=== PATIENT | male | born 1985 | race Caucasian/White ===

== ENCOUNTER → 2020-09-22 | Outpatient (CLI) | payer OTHER ==
--- NOTE | 2020-09-22 13:46 | CONS ---
CONSULTATION DATE OF SERVICE: 09/22/2020. This 35-year-old gentleman has been evaluated in [facility] Center for possible obstructive sleep apnea-hypopnea syndrome. HISTORY OF PRESENT ILLNESS/SLEEP-WAKE EVALUATION: Patient's usual sleep schedule on working days is from 8:30 a.m. to 3 p.m. On weekends from 10 p.m. to 6:45 a.m. 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 No TV in bedroom. He sleeps on the side position. He wakes up from sleep 4-6 times. According to his , he snores loudly and has witnessed episodes of stopped breathing during the sleep. No history of hypnagogic hallucinations, sleep paralysis or cataplexy. [place] Sleepiness Scale significantly increased to 12. The patient may take naps 1-2 times a day. PAST MEDICAL HISTORY: Positive for hypertension, asthma, seasonal allergy, allergic sinusitis, diabetes mellitus, depression. PAST SURGICAL HISTORY: Right knee surgery for meniscus problems. MEDICATIONS: Metformin ER 500 mg twice a day, lisinopril 2.5 mg once a day. SOCIAL HISTORY: Negative for smoking or using alcohol. FAMILY HISTORY: Positive for sleep apnea by his father and his daughter and they are on treatment with CPAP. REVIEW OF SYSTEMS: Multiple awakenings from sleep, sleepiness, loud snoring. No fevers. No double vision. No recent chest pain. No shortness of breath. No abdominal pain. No bleeding episodes. No blood in the urine. No seizure episodes. PHYSICAL EXAMINATION: GENERAL: A pleasant gentleman without distress. VITAL SIGNS: BP 130/83, HR 70, RR 18, height 5 feet 9 inches, weight 226.6, temperature 97.4, oxygen saturation at room air 98%, body mass index 33.3. HEENT: PERRLA, EOMI. Oropharynx extremely low position of soft palate. Mallampati 4. NECK: 16-1/2 inches in circumference. LUNGS: Clear to percussion and to auscultation. Good air exchange. No wheezing or rhonchi. HEART: S1, S2 regular. No murmurs, gallops, or rubs. ABDOMEN: Obese. EXTREMITIES: No clubbing or cyanosis. CHIEF SCIENTIST: Awake, alert, and oriented X3. Cranial nerves 2 to 7 intact. There is no fasciculation or atrophy. noted. No focal deficits observed. IMPRESSION: 1. Loud snoring, witnessed episodes of stopped breathing during sleep, extremely low position of soft palate, sleepiness by [place] Sleepiness Scale, obstructive sleep apnea-hypopnea syndrome. 2. Obesity. 3. 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 4. Hypertension. 5. Asthma. 6. Seasonal allergies. 7. History of sinusitis. 8. Diabetes mellitus. 9. History of depression. 10.Status post right knee surgery for meniscus problems. PLAN: 1. Polysomnography for evaluation of patient's breathing during sleep. 2. CPAP/BiPAP titration if sleep study confirms obstructive sleep apnea-hypopnea syndrome. 3. Preferable position during sleep on the side. 4. No driving if patient feels any sleepiness. 5. I will see patient for follow up visit to explain results of testing and following plan. Thank you very much for referring this patient for consultation. Sincerely, Fidel Field MD, PhD, FAASM Diplomat of [place] [employer]ties [place] Board of [employer] Medicine Pourer Crane Ladle of [facility] [place] MMODL / IJN: [id number] /
== END ==
LOC: SLEEP 11:41
PROVIDERS: ATTEND Internal Medicine
DX: G47.33 Obstructive sleep apnea (adult) (pediatric) (principal); E66.9 Obesity, unspecified; E11.9 Type 2 diabetes mellitus without complications; I10 Essential (primary) hypertension; J45.909 Unspecified asthma, uncomplicated; J30.2 Other seasonal allergic rhinitis; F32.9 Major depressive disorder, single episode, unspecified; Z87.09 Personal history of other diseases of the respiratory system; Z98.890 Other specified postprocedural states

== ENCOUNTER → 2021-12-07 | Outpatient (CLI) | payer OTHER ==
--- NOTE | 2021-12-07 11:31 | P.PN ---
Subjective DATE: 12/07/2021 FOLLOW UP VISIT. Patient with obstructive sleep apnea hypopnea syndrome return to sleep center for follow-up visit. Information from previous visit have been reviewed. Patient is using PAP equipment every night but not always for the whole night, getting PAP supplies in time. The patient does not have significant problems with the mask, PAP unit and humidification. [place] sleepiness scale is for. I checked information from PAP unit. PAP unit pressure 515, average 7.9 cm H2O. Usage is 90%, but only 27 % for more then 4 hours, average 4 hours per night. Leak is 26 l/m, which is in acceptable range. Apnea Hypopnea Index is 0.8, which is normal. MEDICATIONS:1. Metformin 500 mg twice a day 2. Lisinopril 3. Juanita During physical exam: GENERAL: A pleasant patient without any distress. VITAL SIGNS: BP 115/70, HR 62, RR 14 , weight 212.2, temperature and 96.7, oxygen saturation at room air 96 % . HEENT: PERRLA, EOMI.low position of soft palate, Mallapati 4 . NECK: Supple. No JVD. LUNGS: Clear to percussion and to auscultation. Good air exchange. No wheezing or rhonchi. HEART: S1, S2 regular. ABDOMEN: Soft and nontender.[] EXTREMITIES: No clubbing or cyanosis. AUTOMOTIVE METALSMITH: Awake, alert, and oriented x3. No focal deficit. Impressions: 1. Obstructive sleep apnea-hypopnea syndrome. Patient demonstrated borderline compliance with treatment, benefiting from treatment. 2. Hypertension. 3. Asthma. 4. shift engineer worker. 5. Seasonal ALLERGIES. 6. History of sinusitis. 7. Diabetes mellitus. 8. History of depression. 9. Status post right knee surgery for meniscus problems. Plan: 1. Continue using PAP equipment every night for the whole night. 2. To change air filter at least 1-2 times per month. 3. PAP unit should stay lower then position of the head. 4. Advised patient to remove all remaining water from humidifier canister daily and make it dry after each usage. Refill canister with fresh distilled water before each usage. 5. Sleep hygiene with regular time in bed for at least 8 hours. 6. Precautions related to driving. No driving if feel any sleepiness. 7. I will maintain prescription for PAP supplies including mask, tube, filters. 8. Follow up visit in 6 months or earlier if patient has any problems. 9. Watching weight. Thank you very much for allowing me to participate in the management of your patient. Fidel Field MD, PhD, FAASM. Diplomat of [place] Board of Sleep Medicine, Sleep Medicine Board by [place] Board of Internal Medicine School Child Care Attendant of [facility] [place]
== END ==
LOC: SLEEP 10:33
PROVIDERS: ATTEND Internal Medicine
DX: G47.33 Obstructive sleep apnea (adult) (pediatric) (principal); I10 Essential (primary) hypertension; J45.909 Unspecified asthma, uncomplicated; Z87.09 Personal history of other diseases of the respiratory system; E11.9 Type 2 diabetes mellitus without complications; F32.A Depression, unspecified; Z98.890 Other specified postprocedural states; Z79.84 Long term (current) use of oral hypoglycemic drugs; Z79.899 Other long term (current) drug therapy

== ENCOUNTER → 2022-06-07 | Outpatient (CLI) | payer OTHER ==
--- NOTE | 2022-06-07 11:35 | P.PN ---
Subjective DATE: 06/07/2022 FOLLOW UP VISIT. Patient with obstructive sleep apnea hypopnea syndrome return to sleep center for follow-up visit. Information from previous visit have been reviewed. Patient is using PAP equipment every night for the whole night, getting PAP supplies in time. The patient does not have significant problems with the mask, PAP unit and humidification. [place] sleepiness scale is 5, which is normal. I checked information from PAP unit. PAP unit pressure 5-15, average 7.9 cm H2O. Usage is 100% and 83 % for more then 4 hours, average 6.75 hours per night. Leak is 12.6 l/m, which is in acceptable range. Apnea Hypopnea Index is 0.9, which is normal. MEDICATIONS:1. Metformin 500 mg twice a day 2. Lisinopril once a day 3. Victoza During physical exam: GENERAL: A pleasant patient without any distress. VITAL SIGNS: BP 119/74, HR 67, RR 16 , weight 209.6, temperature 97.4, oxygen saturation at room air 98 % . HEENT: PERRLA, EOMI.low position of soft palate, Mallapati 4 . NECK: Supple. No JVD. LUNGS: Clear to percussion and to auscultation. Good air exchange. No wheezing or rhonchi. HEART: S1, S2 regular. ABDOMEN: Soft and nontender.[] EXTREMITIES: No clubbing or cyanosis. SUPERVISOR ROUGH END: Awake, alert, and oriented x3. No focal deficit. Impressions: 1. Obstructive sleep apnea-hypopnea syndrome. Patient demonstrated great compliance with treatment, benefiting from treatment. 2. Hypertension. 3. Diabetes mellitus. 4. History of asthma. 5. Seasonal ALLERGIES. 6. History of sinusitis. 7. History of depression. 8. Status post right knee surgery for meniscus problems. Plan: 1. Continue using PAP equipment every night for the whole night. 2. To change air filter at least 1-2 times per month. 3. PAP unit should stay lower then position of the head. 4. Advised patient to remove all remaining water from humidifier canister daily and make it dry after each usage. Refill canister with fresh distilled water before each usage. 5. Sleep hygiene with regular time in bed for at least 8 hours. 6. Precautions related to driving. No driving if feel any sleepiness. 7. I will maintain prescription for PAP supplies including mask, tube, filters. 8. Follow up visit in 6 months or earlier if patient has any problems. Thank you very much for allowing me to participate in the management of your patient. Fidel Field MD, PhD, FAASM. Diplomat of [place] Board of Sleep Medicine, Sleep Medicine Board by [place] Board of Internal Medicine Administrative Support Specialist of [facility] [place]
== END ==
LOC: SLEEP 10:48
PROVIDERS: ATTEND Internal Medicine
DX: G47.33 Obstructive sleep apnea (adult) (pediatric) (principal); I10 Essential (primary) hypertension; E11.9 Type 2 diabetes mellitus without complications; Z98.890 Other specified postprocedural states; Z82.5 Family history of asthma and other chronic lower respiratory diseases; Z87.09 Personal history of other diseases of the respiratory system; Z79.84 Long term (current) use of oral hypoglycemic drugs; Z79.899 Other long term (current) drug therapy; Z86.59 Personal history of other mental and behavioral disorders; Z99.89 Dependence on other enabling machines and devices; Z96.651 Presence of right artificial knee joint
CPT/HCPCS: 99212

== ENCOUNTER → 2022-12-28 | Outpatient (CLI) | payer OTHER ==
--- NOTE | 2022-12-28 11:28 | P.PN ---
Subjective DATE: 12/28/2022 FOLLOW UP VISIT. Patient with obstructive sleep apnea hypopnea syndrome return to sleep center for follow-up visit. Information from previous visit have been reviewed. Patient is using PAP equipment every night for the whole night, getting PAP supplies in time. The patient does not have significant problems with the mask, PAP unit and humidification. [place] sleepiness scale is 4, which is normal. I checked information from PAP unit. PAP unit pressure 5-15, average 8.7 cm H2O. Usage is 100% and 87 % for more then 4 hours, average 6.75 hours per night. Leak is 15.2 l/m, which is in acceptable range. Apnea Hypopnea Index is 1.1, which is normal. MEDICATIONS:1. Lisinopril 2.5 mg once a day 2. Metformin 500 mg twice a day During physical exam: GENERAL: A pleasant patient without any distress. VITAL SIGNS: BP 119/71, HR 67, RR 16, weight 214.4, temperature 97.9, oxygen saturation at room air 98 % . HEENT: PERRLA, EOMI.low position of soft palate, Mallapati 4 . NECK: Supple. No JVD. LUNGS: Clear to percussion and to auscultation. Good air exchange. No wheezing or rhonchi. HEART: S1, S2 regular. ABDOMEN: Soft and nontender.[] EXTREMITIES: No clubbing or cyanosis. PINSETTER MECHANIC AUTOMATIC: Awake, alert, and oriented x3. No focal deficit. Impressions: 1. Obstructive sleep apnea-hypopnea syndrome. Patient demonstrated great compliance with treatment, benefiting from treatment. 2. Hypertension. 3. Diabetes mellitus. 4. History of asthma. 5. History of depression. 6. History of sinusitis. 7. Seasonal ALLERGIES. 8. Status post right knee surgery for meniscus problems. Plan: 1. Continue using PAP equipment every night for the whole night. 2. To change air filter at least 1-2 times per month. 3. PAP unit should stay lower then position of the head. 4. Advised patient to remove all remaining water from humidifier canister daily and make it dry after each usage. Refill canister with fresh distilled water before each usage. 5. Sleep hygiene with regular time in bed for at least 8 hours. 6. Precautions related to driving. No driving if feel any sleepiness. 7. I will maintain prescription for PAP supplies including mask, tube, filters. 8. Follow up visit in 6 months or earlier if patient has any problems. 9. Watching weight. Thank you very much for allowing me to participate in the management of your patient. Fidel Field MD, PhD, FAASM. Diplomat of [place] Board [employer] Sleep Medicine, Sleep Medicine Board by [place] [employer] Medicine Electric Organ Assembler of [facility] [place]
== END ==
LOC: 3 N SLEEP 10:48
PROVIDERS: ATTEND Internal Medicine
DX: G47.33 Obstructive sleep apnea (adult) (pediatric) (principal); E11.9 Type 2 diabetes mellitus without complications; I10 Essential (primary) hypertension; J45.909 Unspecified asthma, uncomplicated; F32.A Depression, unspecified; Z96.651 Presence of right artificial knee joint; Z99.89 Dependence on other enabling machines and devices; Z79.84 Long term (current) use of oral hypoglycemic drugs; Z79.899 Other long term (current) drug therapy
CPT/HCPCS: 99212

== ENCOUNTER → 2023-07-05 | Outpatient (CLI) | payer OTHER ==
--- NOTE | 2023-07-05 11:03 | P.PN ---
Subjective DATE: 07/05/2023 FOLLOW UP VISIT. Patient with obstructive sleep apnea hypopnea syndrome return to sleep center for follow-up visit. Information from previous visit have been reviewed. Patient is using PAP equipment every night for the whole night, getting PAP supplies in time. The patient does not have significant problems with the mask, PAP unit and humidification. [place] sleepiness scale is 6. I checked information from PAP unit. PAP unit pressure 5-15, average 8.3 cm H2O. Usage is 100% and 77 % for more then 4 hours, average 6.5 hours per night. Leak is 10.2 l/m, which is in acceptable range. Apnea Hypopnea Index is 2.1, which is normal. MEDICATIONS:1. Metformin 500 mg twice a day 2. Victoza During physical exam: GENERAL: A pleasant patient without any distress. VITAL SIGNS: BP 104/75, HR 87, RR 20 , weight 219.0, temperature 97.4, oxygen saturation at room air 98 % . HEENT: PERRLA, EOMI.low position of soft palate, Mallapati 4 . NECK: Supple. No JVD. LUNGS: Clear to percussion and to auscultation. Good air exchange. No wheezing or rhonchi. HEART: S1, S2 regular. ABDOMEN: Soft and nontender.[] EXTREMITIES: No clubbing or cyanosis. PIPELAYER: Awake, alert, and oriented x3. No focal deficit. Impressions: 1. Obstructive sleep apnea-hypopnea syndrome. Patient demonstrated good compliance with treatment, benefiting from treatment. 2. Diabetes mellitus, according to patient recent A1c is 5.9. 3. History of Hypertension. 4. History of asthma. 5. History of depression. 6. History of sinusitis. 7. Seasonal ALLERGY. 8. Status post right knee surgery for meniscus problems. 9. dealership manager worker. Plan: 1. Continue using PAP equipment every night for the whole night. 2. To change air filter at least 1-2 times per month. 3. PAP unit should stay lower then position of the head. 4. Advised patient to remove all remaining water from humidifier canister daily and make it dry after each usage. Refill canister with fresh distilled water before each usage. 5. Sleep hygiene with regular time in bed for at least 8 hours. 6. Precautions related to driving. No driving if feel any sleepiness. 7. I will maintain prescription for PAP supplies including mask, tube, filters. 8. Watching weight. 9. Follow up visit in 6 months or earlier if patient has any problems. Thank you very much for allowing me to participate in the management of your patient. Fidel Field MD, PhD, FAASM. Diplomat of [place] Board of Sleep Medicine, Sleep Medicine Board by [place] Board of Internal Medicine Spring Fitter Helper of [facility] [place]
== END ==
LOC: 3 N SLEEP 10:37
PROVIDERS: ATTEND Internal Medicine
DX: G47.33 Obstructive sleep apnea (adult) (pediatric) (principal); E11.9 Type 2 diabetes mellitus without complications; I10 Essential (primary) hypertension; J45.909 Unspecified asthma, uncomplicated; F32.A Depression, unspecified; Z87.09 Personal history of other diseases of the respiratory system; Z98.890 Other specified postprocedural states; Z99.89 Dependence on other enabling machines and devices; Z79.84 Long term (current) use of oral hypoglycemic drugs
CPT/HCPCS: 99212

== ENCOUNTER → 2024-02-14 | Outpatient (CLI) | payer BC ==
[2024-02-14 10:28] VITALS: BP 111/70; PULSE 56; RESP 18; TEMP 97.7
--- NOTE | 2024-02-14 11:09 | P.PROGSL ---
Subjective DATE: 02/14/2024 FOLLOW UP VISIT. Patient with obstructive sleep apnea hypopnea syndrome return to sleep center for follow-up visit. Information from previous visit have been reviewed. Patient is using PAP equipment every night for the whole night, getting PAP supplies in time. The patient does not have significant problems with the mask, PAP unit and humidification. [place] sleepiness scale is 3, which is normal. I checked information from PAP unit. PAP unit pressure 5-15, average 8.0 cm H2O. Usage is 93% and 87% for more then 4 hours, average 7.5 hours per night. Leak is 15.2 l/m, which is in acceptable range. Apnea Hypopnea Index is 3.2, which is normal. MEDICATIONS have been reviewed, please see below. During physical exam: GENERAL: A pleasant patient without any distress. VITAL SIGNS: Please see below, weight is 221.8 lbs. HEENT: PERRLA, EOMI.low position of soft palate, Mallapati 4 . NECK: Supple. No JVD. LUNGS: Clear to percussion and to auscultation. Good air exchange. No wheezing or rhonchi. HEART: S1, S2 regular. ABDOMEN: Soft and nontender. Slightly obese EXTREMITIES: No clubbing or cyanosis. FORK TRUCK DRIVER: Awake, alert, and oriented x3. No focal deficit. Impressions: 1. Obstructive sleep apnea-hypopnea syndrome. Patient demonstrated great compliance with treatment, benefiting from treatment. 2. Obesity, BMI 34.6, patient increased weight on 2 pounds comparing with previous visit. 3. Diabetes mellitus, recent hemoglobin A1c according to patient 6.9. 4. History of hypertension. 5. History of asthma. 6. History of depression. 7. History of sinusitis. 8. financial institution manager worker. 9. Seasonal allergy. 10. Status post right knee surgery for meniscus problems. Plan: 1. Continue using PAP equipment every night for the whole night. 2. Sleep hygiene with regular time in bed for at least 7.5-8 hours 3. PAP unit should stay lower then position of the head. 4. Advised patient to remove all remaining water from humidifier canister daily and make it dry after each usage. Refill canister with fresh distilled water before each usage. 5. Watching and losing weight. 6. Precautions related to driving. No driving if feel any sleepiness. 7. I will maintain prescription for PAP supplies including mask, tube, filters. 8. Follow up visit in 6 months or earlier if patient has any problems. Thank you very much for allowing me to participate in the management of your patient. Fidel Field MD, PhD, FAASM. Diplomat of [place] Board of Sleep Medicine, Sleep Medicine Board by [place] Board of Internal Medicine Charter Driver of [facility] [place] Objective - Vital Signs Vital Signs: Vital Signs Temp 97.7 F 02/14/24 10:26 Pulse 56 L 02/14/24 10:26 Resp 18 02/14/24 10:26 BP 111/70 02/14/24 10:26 Pulse Ox 98 02/14/24 10:26 FiO2 Intake & Output 02/13/24 02/14/24 02/14/24 18:59 06:59 18:59 Weight 100.471 kg Home Medications: Home Medications Medication Instructions Recorded Confirmed Type Cholecalciferol [Vitamin D3 (125 125 mcg PO DAILY 02/14/24 02/14/24 History Mcg = 5000 Iu)] lisinopriL 2.5 mg PO DAILY 02/14/24 02/14/24 History metFORMIN HCL ER [Glucophage XR] 500 mg PO BID 02/14/24 02/14/24 History
== END ==
LOC: 3 N SLEEP 10:04
PROVIDERS: ATTEND Internal Medicine
CPT/HCPCS: 99212

== ENCOUNTER → 2024-10-30 | Outpatient (CLI) | payer BC ==
[2024-10-30 10:54] VITALS: BP 137/73; PULSE 72; RESP 16; TEMP 97.9
--- NOTE | 2024-10-30 11:07 | P.PROGSL ---
Subjective DATE: 10/30/2024 FOLLOW UP VISIT. Patient with obstructive sleep apnea hypopnea syndrome return to sleep center for follow-up visit. Information from previous visit have been reviewed. Patient is using PAP equipment every night for the whole night, getting PAP supplies in time. The patient does not have significant problems with the mask, PAP unit and humidification. [place] sleepiness scale is 4, which is normal. I checked information from PAP unit. PAP unit pressure 5-15, average 7.6 cm H2O. Usage is 93% for more then 4 hours, average 6.3 hours per night. Leak is 15.4 l/m, which is in acceptable range. Apnea Hypopnea Index is 1.7, which is normal. MEDICATIONS have been reviewed, please see below. During physical exam: GENERAL: A pleasant patient without any distress. VITAL SIGNS: Please see below, weight is 204.4 lbs. HEENT: PERRLA, EOMI.low position of soft palate, Mallapati 4 . NECK: Supple. No JVD. LUNGS: Clear to percussion and to auscultation. Good air exchange. No wheezing or rhonchi. HEART: S1, S2 regular. ABDOMEN: Soft and nontender.[] EXTREMITIES: No clubbing or cyanosis. EQUIPMENT ANALYST: Awake, alert, and oriented x3. No focal deficit. Impressions: 1. Obstructive sleep apnea-hypopnea syndrome. Patient demonstrated great compliance with treatment, benefiting from treatment. 2. Mild obesity, BMI 31.0, patient lost 17 pounds comparing with the previous visit. 3. Diabetes mellitus recent hemoglobin A1c 6.0 according to patient. 4. History of hypertension. 5. History of asthma. 6. History of depression. 7. History of sinusitis. 8. enterprise analyst worker. 9. Status post right knee surgery for meniscus problems. 10. Seasonal allergy. Plan: 1. Continue using PAP equipment every night for the whole night. 2. Sleep hygiene with regular time in bed for at least 7.5-8 hours 3. PAP unit should stay lower then position of the head. 4. Advised patient to remove all remaining water from humidifier canister daily and make it dry after each usage. Refill canister with fresh distilled water before each usage. 5. Watching weight. 6. Precautions related to driving. No driving if feel any sleepiness. 7. I will maintain prescription for PAP supplies including mask, tube, filters. 8. Follow up visit in 8 months or earlier if patient has any problems. Thank you very much for allowing me to participate in the management of your patient. Fidel Field MD, PhD, FAASM. Diplomat of [place] Board of Sleep Medicine, Sleep Medicine Board by [place] Board of Internal Medicine Commercial Tire Service Technician of [facility] [place] Objective - Vital Signs Vital Signs: Vital Signs Temp 97.9 F 10/30/24 10:50 Pulse 72 10/30/24 10:50 Resp 16 10/30/24 10:50 BP 137/73 10/30/24 10:50 Pulse Ox 97 10/30/24 10:50 FiO2 Intake & Output 10/29/24 10/30/24 10/30/24 18:59 06:59 18:59 Weight 92.646 kg Home Medications: Home Medications Medication Instructions Recorded Confirmed Type Cholecalciferol [Vitamin D3 (125 125 mcg PO DAILY 02/14/24 10/30/24 History Mcg = 5000 Iu)] lisinopriL 2.5 mg PO DAILY 02/14/24 10/30/24 History metFORMIN HCL ER [Glucophage XR] 500 mg PO BID 02/14/24 10/30/24 History
== END ==
LOC: 3 N SLEEP 10:32
PROVIDERS: ATTEND Internal Medicine
DX: G47.33 Obstructive sleep apnea (adult) (pediatric) (principal); E66.9 Obesity, unspecified; E11.9 Type 2 diabetes mellitus without complications; I10 Essential (primary) hypertension; J45.909 Unspecified asthma, uncomplicated; F32.A Depression, unspecified; Z98.890 Other specified postprocedural states; Z87.09 Personal history of other diseases of the respiratory system; Z68.31 Body mass index [BMI] 31.0-31.9, adult; Z88.0 Allergy status to penicillin
CPT/HCPCS: 99212